=== PATIENT | female | born 1990 | race Caucasian/White ===

== ENCOUNTER 2018-01-28 12:35 | Inpatient (IN) | payer BC, OTHER ==
[2018-01-28] MEDS ORDERED: Lidocaine 1% w/Epinephrine 1:100K 20 ML VIAL ONE (12:43)
[2018-01-28] MEDS ORDERED: Fentanyl 100 MCG/2 ML VIAL ONE (12:53)
[2018-01-28] MEDS ORDERED: CEFAZOLIN/Water 2 GM/20 ML SYRINGE SLOW IVP SCH (13:00)
[2018-01-28] MEDS ORDERED: Ondansetron HCl/PF 4 MG/2 ML Vial ONE (13:07)
[2018-01-28] MEDS ORDERED: PHENYLEPHRINE-NS 100 MCG/ML 10 ML SYRINGE ONE (13:07)
[2018-01-28] MEDS ORDERED: Succinylcholine Chloride 20 MG/ML 10 ml SYRINGE FS ONE (13:07)
[2018-01-28] MEDS ORDERED: Lidocaine 1% PF 5 ML VIAL ONE (13:07)
[2018-01-28] MEDS ORDERED: Metoclopramide HCl 10 MG/2 ML VIAL ONE ×2 (13:07→13:26)
[2018-01-28] MEDS ORDERED: Dexamethasone 20 MG/5 ML VIAL ONE (13:07)
[2018-01-28] MEDS ORDERED: PROPOFOL 200 MG/20 ML VIAL ONE (13:07)
[2018-01-28 13:12] LABS: #Basophils 0.1 thou/uL (0.0-0.2); #Eosinphils 0.1 thou/uL (0.0-0.7); #Lymphocytes 1.5 thou/uL (1.20-3.40); #Monocytes 0.5 thou/uL (0.11-0.59); #Neutrophils 7.4 thou/uL (1.40-6.50); %Basophils 0.6 % (0.0-1.0); %Eosinophils 0.7 % (0.0-10.0); %Lymphocytes 15.7 % (21.0-51.0); %Monocytes 4.9 % (0.0-10.0); %Neutrophils 78.1 % (42.0-75.0); Hemoglobin 13.3 g/dL (12.0-16.0); Mean Corpuscular HGB CONC 35.1 g/dL (32.0-36.0); Mean Corpuscular Volume 91.2 fL (78.0-98.0); Platelet Count 277 thou/uL (130-400); RBC Distribution Width 11.4 % (11.5-14.5); Red Blood Cell (RBC) Count 4.15 mill/uL (4.20-5.40); White Blood Cell (WBC) Count 9.5 thou/uL (4.8-10.8)
[2018-01-28 13:16] LABS: BHCG - Serum Negative (NEGATIVE); Pregs Control Background? CLEAR/WHITE (CLR/WHITE); Pregs Control Bar Appear? YES (CONTROL BAR)
[2018-01-28 13:22] LABS: Anion Gap 14 mmol/L (10-20); BUN (Urea Nitrogen) 9 mg/dL (7.0-18.7); Calc. Creatinine Clearance 0 mL/min (70-130); Calcium 9.2 mg/dL (7.8-10.44); Carbon Dioxide 20 mmol/L (22-29); Chloride 105 mmol/L (98-107); Estimated GFR-MDRD Greater than 90; Glucose 113 mg/dL (70-105); Potassium 4.1 mmol/L (3.5-5.1); Sodium 135 mmol/L (136-145)
[2018-01-28] MEDS ORDERED: diphenhydrAMINE 50 MG/ML VIAL ONE (13:26)
[2018-01-28] MEDS ORDERED: Fentanyl 250 MCG/5 ML VIAL ONE (14:25)
[2018-01-28] MEDS ORDERED: Heparin 10,000 UNITS/1 ML VIAL ONE ×2 (14:46→21:53)
[2018-01-28] MEDS ORDERED: Lidocaine 2% 10 ML INJ ONE (14:46)
[2018-01-28] MEDS ORDERED: Hetastarch 6% 500 ML 500 ML ONE (14:46)
[2018-01-28] MEDS ORDERED: traMADol HCl 50 MG TAB PO PRN (14:47)
[2018-01-28] MEDS ORDERED: Dextrose 5% in Water 1,000 ML IV PRN (14:49)
[2018-01-28] MEDS ORDERED: Ondansetron ODT 4 MG TAB PO PRN (14:49)
[2018-01-28] MEDS ORDERED: Dextrose 50% Abboject 50 ML SYRINGE SLOW IVP PRN (14:49)
[2018-01-28] MEDS ORDERED: Ondansetron HCl/PF 4 MG/2 ML Vial IVP PRN (14:49)
--- NOTE | 2018-01-28 14:53 | RAD ---
PORTABLE CHEST: Date: 01/28/18 PROVIDED CLINICAL HISTORY: Partial left thumb amputation. FINDINGS: Cardiac and mediastinal silhouette is within normal limits. Lungs appear clear. No pleural fluid or p neumothorax apparent. IMPRESSION: No evidence for an acute cardiopulmonary process. POS: PEDRO
--- NOTE | 2018-01-28 15:07 | RAD ---
LEFT HAND 3 VIEWS: Date: 01/28/18 PROVIDED CLINICAL HISTORY: Left hand pain status post injury. FINDINGS: Markedly comminuted displaced fractures of the thumb proximal phalanx and proximal second and third m etacarpals demonstrated. Associated soft tissue irregularity. No additional fracture is evident. Alig nment appears otherwise anatomic. IMPRESSION: Comminuted displaced fractures of the first through third rays as above. POS: PEDRO
[2018-01-28] MEDS ORDERED: HYDROmorphone 0.5 MG/0.5 ML SYRINGE ONE ×5 (15:45→21:21)
[2018-01-28 17:16] LABS: Hemoglobin 10.7 g/dL (12.0-16.0)
[2018-01-28] MEDS ORDERED: Sodium Chloride 0.9% 30 ML ONE (17:19)
[2018-01-28] MEDS ORDERED: Albumin 5% 500 ML ONE (18:29)
[2018-01-28 19:14] LABS: Hemoglobin 9.4 g/dL (12.0-16.0)
[2018-01-28] MEDS ORDERED: Bacitracin Zinc Ointment 30 gm TUBE ONE (19:33)
[2018-01-28] MEDS ORDERED: CEFAZOLIN 1 GM VIAL ONE (20:48)
[2018-01-28] MEDS ORDERED: Sodium Chloride 0.9% 10 ML ONE (22:31)
[2018-01-28] MEDS ORDERED: Bupivacaine PF 0.5% 30 ML VIAL ONE (23:28)
[2018-01-29] MEDS: Sodium Chloride 0.9% 1,000 ML IV SCH ×3 (00:19→09:17)
[2018-01-29] MEDS ORDERED: HYDROcodone/Acetaminophen 5/325 mg Tablet PO PRN (00:20)
[2018-01-29] MEDS ORDERED: Ondansetron HCl/PF 4 MG/2 ML Vial IV PRN (00:20)
[2018-01-29] MEDS ORDERED: TETANUS AND DIPHTHERIA TOX/PF 0.5 ML DISP.SYRIN IM SCH (00:30)
[2018-01-29] MEDS ORDERED: Communication Order-Pharmacy FS SCH (00:30)
[2018-01-29 00:41] VITALS: BMI 25.4
[2018-01-29] MEDS: Acetaminophen 500 MG TAB PO SCH ×5 (00:57→19:56)
[2018-01-29] MEDS: traMADol HCl 50 MG TAB PO SCH ×5 (00:58→19:57)
[2018-01-29] MEDS: Gentamicin Sulfate 80 MG in Premix Bag 1 BAG IVPB SCH ×2 (00:59→17:20)
[2018-01-29] MEDS: Ketorolac Tromethamine 30 MG/ML VIAL IVP SCH ×5 (01:00→17:28)
[2018-01-29] MEDS: CEFAZOLIN 1 GM in Sodium Chloride 0.9% 100 ML IVPB SCH ×5 (01:00→22:08)
[2018-01-29] MEDS: Famotidine 20 MG TAB PO SCH ×3 (01:00→19:58)
[2018-01-29] MEDS: Vancomycin HCl 1 GM in Premix Bag 1 BAG IVPB SCH ×3 (01:10→17:27)
[2018-01-29] MEDS ORDERED: Hetastarch 6% 500 ML 500 ML IVPB SCH (01:15)
[2018-01-29 04:00] LABS: #Lymphocytes 1.2 thou/uL (1.20-3.40); #Monocytes 0.4 thou/uL (0.11-0.59); #Neutrophils 7.2 thou/uL (1.40-6.50); %Lymphocytes 13.6 % (21.0-51.0); %Monocytes 4.5 % (0.0-10.0); %Neutrophils 81.8 % (42.0-75.0); Hemoglobin 9.6 g/dL (12.0-16.0); Mean Corpuscular HGB CONC 34.2 g/dL (32.0-36.0); Mean Corpuscular Hemoglobin 31.3 pg (27.0-31.0); Mean Corpuscular Volume 91.3 fL (78.0-98.0); Mean Platelet Volume 6.1 fL (7.4-10.4); Platelet Count 217 thou/uL (130-400); RBC Distribution Width 11.4 % (11.5-14.5); Red Blood Cell (RBC) Count 3.06 mill/uL (4.20-5.40); White Blood Cell (WBC) Count 8.8 thou/uL (4.8-10.8)
[2018-01-29] MEDS: Aspirin 81 mg Enteric Coated Tablet PO SCH ×2 (08:16→19:56)
[2018-01-29] MEDS ORDERED: Vancomycin HCl 1 GM in Premix Bag 1 BAG IVPB SCH (09:00)
--- NOTE | 2018-01-29 09:02 | HP ---
DATE OF ADMISSION: 01/28/2018 ATTENDING PHYSICIAN: Dr. Gomez. TRAUMA ACTIVATION: Level 2. HISTORY OF PRESENT ILLNESS: This is a 27-year-old female who presented to [facility] via [facility] after sustaining an injury to her left hand. Per patient, they were using a skill saw when her hand slipped and got hit by the blade with a saw. She had immediate onset of left hand pain and deformity . Patient was evaluated in the emergency room and found to have an open left hand fracture with a ne urosensory deficit. She was seen and evaluated by Dr. Burroughs who plans on taking her to the OR at this time. Upon my evaluation, the patient has a chief complaint of left hand pain which has been im proved with medications and worsened with movement. She denies falling or any other traumatic injury . PAST MEDICAL HISTORY: ALLERGIES: None. CHRONIC MEDICAL ILLNESSES: Hypothyroidism. HOME MEDICATIONS: Synthroid 100 mcg, liothyronine 25 mcg, control. PAST SURGICAL HISTORY: Tonsillectomy. 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 She endorses occasional alcohol use. Marcos es tobacco or illicit drug use. FAMILY HISTORY: Noncontributory. REVIEW OF SYSTEMS: A 10-point review of systems was performed and essentially negative with the exce ption of upper respiratory infection and as indicated in the HPI. PHYSICAL EXAMINATION: VITAL SIGNS: Blood pressure 128/77, pulse 73, respirations 14, O2 sat 99% on room air, temperature 9 9.0. GENERAL: Well-developed female in no acute distress, resting in bed. HEAD: Atraumatic, normocephalic. EYES: Pupils were PERRL. Extraocular movements are intact. NECK: Supple. Trachea is midline. CHEST: Atraumatic. No tenderness to palpation. Normal work of breathing, symmetric rise. LUNGS: Clear to auscultation bilaterally. CARDIOVASCULAR: Regular rate and rhythm, no obvious murmurs, rubs or gallops. GASTROINTESTINAL: Soft, nontender, nondistended. Bowel sounds are positive. MUSCULOSKELETAL: Bilateral lower extremities within normal limits. Right upper extremity within nor mal limits. Left upper extremity with some bruising of the proximal arm attributed to prolonged infl ation of blood pressure cuff. Left hand dressing with some sanguinous staining. Fingers demonstrate good capillary refill. Second through fourth fingers with good capillary refill, but first through fourth fingers with decreased extension, thumb with impaired capillary refill. Fifth digit appears t o be within normal limits. NEUROLOGIC: GCS of 15 and no focal deficit is noted. LABORATORY DATA: WBC 9.5, hemoglobin 13.3, hematocrit 37.9, platelet count 277. Sodium 135, potassi um 4.1, chloride 105, carbon dioxide 20, BUN 9, creatinine 0.71, glucose 113. Serum test i s negative. RADIOLOGIC FINDINGS: Chest x-ray without acute cardiopulmonary process. Hand x-ray with soft tissue swelling and obvious fracture of the middle phalanx of the first finger and the second and third met acarpal. Official read is still pending. ASSESSMENT: 1. Status post skill saw trauma to left upper extremity. 2. Open fracture, left hand. 3. Acute traumatic pain. 4. History of hypothyroidism. PLAN: Admit to Trauma Services. Dr. Burroughs from Hand and Orthopedic Surgery has seen and evaluate d the patient. She is currently on day stay pending operative intervention to her injury. Periopera tive pain management with p.o. analgesics. Postoperatively, the patient will need at least a 24-hour course of IV antibiotics. Further postoperative care to be determined after discussion with Dr. Lanny canseco and dependent upon vascular status postoperatively. Plans for admission were discussed with th e patient at bedside. All questions were answered at the time of this dictation. Trauma attending h as been notified of admission.
--- NOTE | 2018-01-29 11:47 | RAD ---
LEFT HAND 3 VIEWS: Date: 01/28/18 PROVIDED CLINICAL HISTORY: Postop. FINDINGS: Multiple spot fluoroscopic images of the left hand submitted. COMPARISON: 01/28/18. FINDINGS: Interval postoperative changes of open reduction and internal fixation involving previously described fractures of first through third rays. Pinning changes are noted involving the base of the fourth me tacarpal, which presumably reflects fracture fixation. IMPRESSION: As above. POS: PEDRO
--- NOTE | 2018-01-29 12:30 | PRG ---
DATE OF SERVICE: 01/29/2018 SUBJECTIVE: This is a 27-year-old female who was a level 2 trauma activation after sustaining a trau ma to her left hand secondary to a skill saw accident. She is postop day #1 status post repair of th ose injuries with Dr. Burroughs. Upon my evaluation, the patient states that her pain has been well c ontrolled and she vocalized no complaint. There were no acute overnight events. OBJECTIVE: VITAL SIGNS: T-max 99.1, pulse 80, respirations 16, O2 sat 98% on room air, blood pressure 111/71. GENERAL: Well-developed young female in no acute distress, resting in bed. PULMONARY: Normal work of breathing. Symmetric rise. CARDIOVASCULAR: Regular rate and rhythm. GASTROINTESTINAL: Abdomen is soft, nontender, nondistended. MUSCULOSKELETAL: Moves all extremities x4. Left upper extremity dressing is clean, dry, and intact. Sensation intact in all 5 fingers. She has good capillary refill. LABORATORY DATA: WBC 8.8, hemoglobin 9.6, hematocrit 27.9, platelet count 217. ASSESSMENT: 1. Status post skill saw accident. 2. Open proximal phalanx and second and third metacarpal fractures, postop day #1. 3. Acute traumatic pain. PLAN: Continue antibiotics per discussion with Dr. Burroughs from Hand Surgery. Continue frequent va scular checks and dextran. Discontinue Loco and maintenance IV fluids. Incentive spirometry, pulmo nary toileting and mobility. The patient was discussed with trauma attending.
--- NOTE | 2018-01-29 21:53 | HP ---
CHIEF COMPLAINT: Deep laceration of left hand. HISTORY OF PRESENT ILLNESS: This is a 27-year-old female who sustained a deep transverse laceration of the left hand due to a skill saw. Yesterday, she was in the operating room for over 12 hours for reconstruction and had the hand reattached. She does report her pain is controlled. She does have s ome sensation in her fingers. PAST MEDICAL HISTORY: Significant for hypothyroidism. PAST SURGERIES: Tonsil and adenoidectomy. MEDICATIONS: Levothyroxine. ALLERGIES: No known drug allergies. SOCIAL HISTORY: She is . She is a homemaker. No tobacco or alcohol. FAMILY HISTORY: Heart disease in her father. PHYSICAL EXAMINATION: VITAL SIGNS: Temperature 99, pulse 89, blood pressure 123/70. GENERAL: Well-developed, well-nourished female, awake, alert, in no apparent distress. HEENT: No injury. Pupils equal, round, and reactive. Extraocular motor intact. Pharynx clear. Go od dentition. NECK: Supple, no thyroid masses, no carotid bruits, no tenderness. LUNGS: Clear. HEART: Regular rate and rhythm. ABDOMEN: Soft, nondistended, nontender. EXTREMITIES: Her left hand is bandaged. It is her nondominant hand. The fingers are exposed. They have good vascularity and warmth, capillary refill and they do have sensation. ASSESSMENT: Status post reconstruction of left hand. PLAN: Per Dr. Burroughs.
[2018-01-30] MEDS: Ketorolac Tromethamine 30 MG/ML VIAL IVP SCH ×4 (00:46→17:37)
[2018-01-30] MEDS: traMADol HCl 50 MG TAB PO SCH ×4 (02:41→20:49)
[2018-01-30] MEDS: Vancomycin HCl 1 GM in Premix Bag 1 BAG IVPB SCH ×3 (02:41→18:05)
[2018-01-30] MEDS: Acetaminophen 500 MG TAB PO SCH ×4 (02:41→20:50)
[2018-01-30] MEDS: CEFAZOLIN 1 GM in Sodium Chloride 0.9% 100 ML IVPB SCH ×3 (06:19→20:57)
[2018-01-30] MEDS: Aspirin 81 mg Enteric Coated Tablet PO SCH ×2 (09:36→20:50)
[2018-01-30] MEDS: Famotidine 20 MG TAB PO SCH ×2 (09:36→20:49)
[2018-01-30] MEDS: Gentamicin Sulfate 80 MG in Premix Bag 1 BAG IVPB SCH ×2 (09:36→17:37)
--- NOTE | 2018-01-30 11:08 | PRG ---
DATE OF SERVICE: 01/30/2018 SUBJECTIVE: This is a 27-year-old female who is a level 2 trauma activation after sustaining trauma to her left hand secondary to a skill saw accident. She is postop day #2 status post repair of those injuries by Dr. Burroughs. Upon her evaluation this morning, the patient states the pain has been we ll controlled and she vocalized no complaint. There were no acute overnight events. OBJECTIVE: VITAL SIGNS: Temperature 98.5, pulse 88, respirations 16, O2 sat 100% on room air, blood pressure 11 1/66. GENERAL: Young female in no acute distress, sitting in a chair, out of bed. PULMONARY: Normal work of breathing. Symmetric rise. CARDIOVASCULAR: Regular rate and rhythm. GASTROINTESTINAL: The abdomen is soft, nontender, nondistended. MUSCULOSKELETAL: Moves all extremities x4. Left upper extremity dressing is clean, dry and intact. She is able to move all her fingers and has good capillary refill. NEUROLOGIC: No focal deficit noted. ASSESSMENT: 1. Status post left upper extremity trauma secondary to skill saw accident. 2. Open proximal phalanx and second and third metacarpal fractures, postop day 2. 3. Acute traumatic pain. PLAN: Continue IV antibiotics at this time. We will discuss with Dr. Burroughs for definitive plan o f care. Continue Dextran per Dr. Burroughs's recommendations. Continue to encourage incentive spirom etry, pulmonary toileting and mobility. The patient's plan of care was discussed with the patient at bedside and all questions were answered at the time of this dictation. The patient was seen with trauma attending.
[2018-01-30] MEDS ORDERED: Hetastarch 6% 500 ML 500 ML IVPB SCH (15:45)
[2018-01-31] MEDS: Ketorolac Tromethamine 30 MG/ML VIAL IVP SCH ×2 (00:34→05:40)
[2018-01-31] MEDS: Gentamicin Sulfate 80 MG in Premix Bag 1 BAG IVPB SCH ×2 (00:35→08:47)
[2018-01-31 01:35] LABS: Vancomycin, Trough 12.4 ug/mL
[2018-01-31] MEDS: Vancomycin HCl 1 GM in Premix Bag 1 BAG IVPB SCH ×2 (03:04→09:48)
[2018-01-31] MEDS: Acetaminophen 500 MG TAB PO SCH ×3 (03:25→15:02)
[2018-01-31] MEDS: traMADol HCl 50 MG TAB PO SCH ×3 (03:25→15:02)
[2018-01-31] MEDS: CEFAZOLIN 1 GM in Sodium Chloride 0.9% 100 ML IVPB SCH ×2 (05:39→14:09)
[2018-01-31 06:37] LABS: #Eosinphils 0.2 thou/uL (0.0-0.7); #Lymphocytes 2.5 thou/uL (1.20-3.40); #Monocytes 0.3 thou/uL (0.11-0.59); #Neutrophils 3.1 thou/uL (1.40-6.50); %Basophils 0.6 % (0.0-1.0); %Eosinophils 2.5 % (0.0-10.0); %Lymphocytes 41.3 % (21.0-51.0); %Monocytes 4.5 % (0.0-10.0); %Neutrophils 51.2 % (42.0-75.0); Hemoglobin 8.8 g/dL (12.0-16.0); Mean Corpuscular HGB CONC 34.7 g/dL (32.0-36.0); Mean Corpuscular Hemoglobin 32.2 pg (27.0-31.0); Mean Corpuscular Volume 92.6 fL (78.0-98.0); Platelet Count 237 thou/uL (130-400); RBC Distribution Width 11.3 % (11.5-14.5); Red Blood Cell (RBC) Count 2.75 mill/uL (4.20-5.40)
[2018-01-31] MEDS ORDERED: Ferrous Sulfate 325 MG TAB PO SCH (08:00)
[2018-01-31] MEDS: Famotidine 20 MG TAB PO SCH (08:45)
[2018-01-31] MEDS: Aspirin 81 mg Enteric Coated Tablet PO SCH (08:46)
[2018-01-31] MEDS ORDERED: Ascorbic Acid 500 mg Chewable Tablet PO SCH (09:00)
[2018-01-31] MEDS ORDERED: Ibuprofen 600 MG TAB PO SCH (15:00)
[2018-01-31 15:53] VITALS: BP 125/80; TEMP 97.7
--- NOTE | 2018-02-01 14:01 | OP ---
DATE OF PROCEDURE: 01/28/2018 PREOPERATIVE DIAGNOSES: 1. Near complete amputation thumb with open fracture distal proximal phalanx, multiple tendon lacera tions. 2. Index finger open fracture with extensor tendon laceration. 3. Long finger grade 2 open fracture with extensor tendon laceration. 4. Ring finger open fracture, grade 2, proximal aspect of the metacarpal with tendon involvement. POSTOPERATIVE DIAGNOSES AND FINDINGS: 1. Near complete amputation thumb with open fracture distal proximal phalanx, multiple tendon lacera tions. 2. Index finger open fracture with extensor tendon laceration. 3. Long finger grade 2 open fracture with extensor tendon laceration. 4. Ring finger open fracture, grade 2, proximal aspect of the metacarpal with tendon involvement. 5. Extensor pollicis longus laceration just distal to the metacarpophalangeal joint with the extenso r pollicis brevis not involved. 6. Intrinsic lacerations in all digits to include dorsal interossei one through four. 7. Superficial radial nerve laceration index, second webspace and long finger. 8. Thumb ulnar neurovascular bundle artery and nerve laceration with intact artery neurovascular bun dle on the radial aspect. 9. Complete flexor pollicis longus laceration between the 2 pulleys. 10. Segmental bone loss, base of the metacarpal fracture, index finger greater than the long finger with necessary and best fit techniques and temporary fixation because of bone loss and need for later bone grafting at the index finger. 11. Extensor tendon lacerations in zone 6, extensor indicis proprius 2, extensor digitorum communis 3 to the index finger 4, long finger extensor digitorum communis 5, ring fingers extensor digitorum c ommunis with no evidence of palmar neurovascular structure injury or tendon injury in these central d igits. Total length of wound was 20 cm. Skin bridge found to be 8.5 mm on the radial palmar aspect of the thumb, left. PROCEDURES PERFORMED: 1. Thumb, left: A. Debridement of open fracture, grade 3 and material associated with open fracture. B. Repair of extensor pollicis longus tendon. C. Repair of intrinsic first dorsal interossei. D. Open reduction and internal fixation of proximal phalanx fracture. E. Flexor pollicis longus repair. F. Microscopic radial digital nerve repair. G. Microscopic repair of radial digital artery. 2. At the index finger: A. Debridement material associated with open fracture. B. Debridement of wound. C. Open reduction and internal fixation of comminuted index finger metacarpal fracture. D. First and second dorsal interossei repair. E. Extensor digitorum communis repair to the index finger. 3. At the middle finger: A. Debridement material associated with open fracture. B. Open reduction and internal fixation of middle finger metacarpal fracture. C. Third dorsal interossei repair. D. Extensor digitorum communis to the long finger/middle finger repair. 4. At the ring finger: A. Debridement material associated with open fracture. B. Open reduction and internal fixation of proximal aspect of the ring finger with K-wire. C. Dorsal interossei repair. D. Extensor digitorum communis repair. ADDITIONAL PROCEDURES: 1. Superficial radial nerve repair under microscope as was the ulnar digital nerve and artery under microscope. 2. Ligation of bleeder, dorsal artery circulation over the second metacarpal. 3. Debridement of wound, total 20 cm. 4. Closure of wound with a 2-layer closure, 20 cm, hand. 5. Application of intra-articular under microscope. 6. Application of short arm splint x2 for both the thumb and the digits. INDICATIONS: The patient was holding the saw for and the saw accidentally jumped, contact in a left nondominant hand leaving her with injuries listed above, which are all opened when the thumb had neurovascular compromise, so emergent procedure was indicated and executed at this hospital. DESCRIPTION OF PROCEDURE: After successful general endotracheal anesthesia, the limb was prepped and draped. We immediately went from [id number] and she had a field tourniquet applied. We prepped and draped the wound after obtaining a consent from the patient, initially with prepped an d draped wound, we did the initial debridement under, without tourniquet, to ensure we could tell wha t was viable and nonviable debridement material associated with open fracture to determine the level of contamination and we found it to be minimal, then we lifted up each fragment on the thumb, index, long, and the ring finger, which is only 50% cut and does not obliquely sagittal plane displaced, we using combination of a curette, tenotomy scissors as a rongeur, several retractors to perform the mira ridement in an excisional manner, removing of 1 to 1.5 mm circumference of the skin in all denuded mu scle. We then irrigated with 6 liters of normal saline and Pulsavac pressure. This included in the thumb. Next, we then performed provisional fixation of the thumb, K-wire was placed in the very dist al end of the oblique fracture in a lag screw technique and then lag screws were used x2, 1.5 Synthes set to complete this fracture care. We then had anatomic position and was stable, so we then did an extensor tendon repair with interrupted [id number] 4-0 Prolene which will be the same sutures u sed for all the other extensor tendons. The intrinsics were repaired with 2-0 Vicryl, then periosteu m was repaired on the palmar and dorsal aspect before tying the final sutures, and then we turned our attention to the next digit, realized then we have to do inspection of the neurovascular bundle and the flexor pollicis longus could be visualized through the wound to be cut, but the radial neurovascu lar bundle remained clinically intact. We now turned our attention to the index finger where the patient had a 6-part comminuted fracture he re, a 4-part comminuted fracture at the ring finger, and an incomplete approximately 40% cortical fra cture impression type, but still hanging at the ring finger. For the ring finger, we performed reduc tion and held that after debridement of material associated with open fracture using one 0.45 K-wire. We then placed one intramedullary wire after the debridement and best fit in the middle finger frac ture and then held this position, so we could place a plate, because there was no gross contamination as it is a grade 2 fracture in upper extremity. T-plate was used in excellent rotation at length. We lagged in one large buttress-type fragment on the radial side of the long finger, but then we turn ed our attention to the index finger. Here, we had to use the best fit method as well, but two 0.035 K-wire was placed and measured that from distal to proximal, held it out to length, because we could see there was marked comminution. This would be addressed later after I discussed with the patient and her family postop with bone graft once assuring no infection of 4-[address]. Now, we finished all debridement of the interossei, the skin is retracted 1.5 to 2 mm and then denude d skin excised with a Chevak blade in combination with a knife. We then irrigated with Pulsavac pres sure one last time, the reduction was maintained. We began with the index finger, indicis proprius a nd the extensor digitorum communis of the index finger repair, interrupted [id number] sutures wi th excellent latter day of some extension to the flexor digit. Then, we did the same procedure of t he extensor digitorum communis, we did extensor digitorum proprius of the index finger. We then trimmed the edges of the middle finger tendon, and used the same technique as used listed pre viously to correct deformity. Then, we identified the fracture on the ring finger being fixable, bec ause of the lack of contamination and the fact that there were three large fragments and two could be keyed into the base well. The patient then had the tourniquet deflated for first tourniquet time, now we returned our attention to tedious task of repairing all the tendons. After we had done the thumb extensor tendon, we then finished repairing all the interossei dorsally and the palmar portion of the wound and did not see an y neurovascular compromise. We then with an interrupted [id number] repair of all the extensor tendons, beginning in the ring finger, long finger/middle finger, and index finger after already finishing the ORIF of the proximal phalanx of the thumb with two lag screws . Now, we began the final deep debridement and remova l of some denuded muscle clot, and then we realized that the superficial radial nerve was completely lacerated in the 2 of the 3 terminal rami and we also dissected out by extending the incision slightl y distal and the thumb was standing in the same plane and did not violate the truly one intact vessel . We were able to see the flexor pollicis longus tendon, with a complete ulnar neurovascular bundle being lacerated, we found the distal end and held it with a small clamp. We then finished the #2 Ethibond closure and repaired in a [id number] individually for interosse i and we had excellent apposition. The extensor carpi radialis longus and brevis appeared to be inta ct during this procedure. We finished the irrigation, and then we finished the extensor tendon repai rs, extensor digitorum communis to the ring, long, index finger, extensor indicis proprius to t he index finger as well as the flexor pollicis longus repair which was then accomplished in the next step after closing the periosteum with interrupted 3-0 Monocryl, 3-0 undyed Vicryl. Flexor pollicis longus was visualized, then we lacerated between the pulleys, we pulled both the tendons into the wou nd and held them provisionally with a pull out wire, where the distal stump was approximately 1.5 cm long and the proximal stump was infinite. With the digit flexed, we brought both the wound, placed u sing the 6-0 Prolene, back wall method first through alignment, then we came with a loop suture as de scribed by Dr. Sutherland and Dr. Montoya. This gave excellent apposition, then we oversewed the 6-0 Prolene c ircumferentially on the palmar aspect of the tendon since it was cut from dorsal to palmar and slight ly obliquely. There was an excellent tension on the previous 20-degree hyperextended, to now make it 25 degrees flex of distal thumb interphalangeal joint. All the open reduction and internal fixation that we described above. C-arm was utilized. Then, the tourniquet had been inflated and deflated and then inflated again given almost a 90 minute break bet ween the two, because of fears of possible prehospitalization compression. The wound was then irrigated final time with 1 liter of normal saline and Pulsavac pressure with anti biotics inside. Then, we prepared to close the wound which we did over drains. We closed the 20-cm wound in multiple layers with a Monocryl deep and an Ethibond superficial . We then went ahead, the K-wires placed for provisional fixation, cut, and brought out through separate stab wounds follo wing the incisions with a wire bent 90 degrees. The flexion attitude of 30 degrees maintained on the flexor pollicis longus effect on the phalangeal joint throughout the procedure and the digit was pin k once we completed the microscopic repair using 9-0 nylon for the artery and 9-0 for the digital ner ve at the level just prior or proximal to the bifurcation. The pulleys now will be repaired as the l aceration was through the tendon sheath. This was at the flexor pollicis longus with an excellent ap position using the technique as described above. We then deflated tourniquet for the last time as having a 2-1/2 hour interval between the first and s econd phase of the tourniquet use and was able to obtain excellent skin closure over drain, palmar ba sed splint with the MP joints at -30 degrees full extension instead of the 90, which was attached to the repair. Patient left the operating room without evidence of anesthetic or operative complication .
== END 2018-01-31 18:45 | disposition home or self-care (01) | DRG 906 ==
LOC: ERS 12:35 → CCU 01-29 00:32 → SJJU 01-29 15:41
PROVIDERS: ADMIT Orthopaedic Surgery Hand Surgery; ATTEND Orthopaedic Surgery Hand Surgery
PROC: 0PSS04Z Reposition Left Thumb Phalanx with Internal Fixation Device, Open Approach (ICD-10-PCS; principal; 2018-01-29)
PROC: 01Q60ZZ Repair Radial Nerve, Open Approach (ICD-10-PCS; 2018-01-29)
PROC: 03QC0ZZ Repair Left Radial Artery, Open Approach (ICD-10-PCS; 2018-01-29)
PROC: 0PSQ04Z Reposition Left Metacarpal with Internal Fixation Device, Open Approach (ICD-10-PCS; 2018-01-29)
PROC: 0PSQ04Z Reposition Left Metacarpal with Internal Fixation Device, Open Approach (ICD-10-PCS; 2018-01-29)
PROC: 0PSV04Z Reposition Left Finger Phalanx with Internal Fixation Device, Open Approach (ICD-10-PCS; 2018-01-29)
DX: S68.522A Partial traumatic transphalangeal amputation of left thumb, initial encounter (principal); S62.391B Other fracture of second metacarpal bone, left hand, initial encounter for open fracture; S62.393B Other fracture of third metacarpal bone, left hand, initial encounter for open fracture; S62.615B Displaced fracture of proximal phalanx of left ring finger, initial encounter for open fracture; S64.22XA Injury of radial nerve at wrist and hand level of left arm, initial encounter; E03.9 Hypothyroidism, unspecified; W31.2XXA Contact with powered woodworking and forming machines, initial encounter; Y93.H3 Activity, building and construction
CPT/HCPCS: 36415; 36430; 71045; 76001; 80048; 80202; 84703; 85025; 86850; 86900; 86901; 96361; 96374; 96375; A4216; C1713; G0390; J0131; J0690; J1100; J1170; J1200; J1580; J1644; J1885; J2001; J2270; J2405; J2704; J2765; J3010; J3370; J3490; J7050; P9016; P9045; S0020

== ENCOUNTER 2018-03-03 06:49 | Observation (INO) | payer OTHER ==
[2018-03-02 12:07] VITALS: BMI 23.6
[2018-03-03] MEDS ORDERED: Midazolam HCl 2 mg/2 ml Vial ONE (08:24)
[2018-03-03] MEDS ORDERED: Ropivacaine 0.2% HCl/PF 20 ML ONE (08:24)
[2018-03-03] MEDS ORDERED: Fentanyl 100 MCG/2 ML VIAL ONE (08:24)
[2018-03-03] MEDS ORDERED: Bupivacaine PF 0.5% 30 ML VIAL ONE (08:31)
[2018-03-03] MEDS ORDERED: Sodium Chloride 0.9% 10 ML ONE (08:31)
[2018-03-03] MEDS ORDERED: Bacitracin Zinc Ointment 30 gm TUBE ONE (08:31)
[2018-03-03] MEDS ORDERED: Zolpidem Tartrate 5 MG TAB PO PRN (08:45)
[2018-03-03] MEDS ORDERED: Ondansetron HCl/PF 4 MG/2 ML Vial IVP PRN (08:45)
[2018-03-03] MEDS ORDERED: Ropivacaine HCl/PF 1,100 MG in Sodium Chloride 0.9% 440 ML NERVE BLCK SCH (08:45)
[2018-03-03] MEDS ORDERED: traMADol HCl 50 MG TAB PO PRN ×2 (08:45)
[2018-03-03] MEDS ORDERED: HYDROcodone/Acetaminophen 10/325 mg Tablet PO PRN (08:45)
[2018-03-03] MEDS ORDERED: Promethazine HCl 25 MG/ML VIAL IM PRN (08:45)
[2018-03-03] MEDS ORDERED: Ketorolac Tromethamine 30 MG/ML VIAL IVP PRN (08:45)
[2018-03-03] MEDS ORDERED: Fentanyl 100 MCG/2 ML VIAL IV PRN (08:46)
[2018-03-03] MEDS ORDERED: Fentanyl 250 MCG/5 ML VIAL ONE (08:47)
[2018-03-03 09:11] LABS: #Lymphocytes 1.6 thou/uL (1.20-3.40); #Monocytes 0.3 thou/uL (0.11-0.59); #Neutrophils 2.9 thou/uL (1.40-6.50); %Basophils 0.4 % (0.0-1.0); %Eosinophils 0.8 % (0.0-10.0); %Lymphocytes 32.7 % (21.0-51.0); %Neutrophils 59.2 % (42.0-75.0); Mean Platelet Volume 6.5 fL (7.4-10.4); Platelet Count 218 thou/uL (130-400); RBC Distribution Width 11.6 % (11.5-14.5); Red Blood Cell (RBC) Count 3.66 mill/uL (4.20-5.40); White Blood Cell (WBC) Count 4.9 thou/uL (4.8-10.8)
[2018-03-03] MEDS ORDERED: Thrombin 5000 UNITS/5 ML VIAL ONE (11:02)
[2018-03-03] MEDS ORDERED: Ropivacaine 0.5% HCl/PF (150 MG/30 ML VIAL) ONE (13:12)
[2018-03-03] MEDS ORDERED: PROPOFOL 200 MG/20 ML VIAL ONE (15:07)
[2018-03-03] MEDS ORDERED: Ondansetron HCl/PF 4 MG/2 ML Vial ONE (15:07)
[2018-03-03] MEDS ORDERED: Glycopyrrolate 0.2 MG/ML 5 ML SYRINGE ONE (15:07)
[2018-03-03] MEDS ORDERED: Metoclopramide HCl 10 MG/2 ML VIAL ONE (15:07)
[2018-03-03] MEDS ORDERED: Dexamethasone 20 MG/5 ML VIAL ONE (15:07)
[2018-03-03] MEDS ORDERED: ePHEDrine/0.9% NaCl/PF SYRINGE 50 mg/10 ml ONE (15:07)
[2018-03-03] MEDS ORDERED: Ondansetron HCl/PF 4 MG/2 ML Vial IV PRN (15:28)
[2018-03-03] MEDS ORDERED: Milk Of Magnesia 30 ML UDCUP PO PRN (15:28)
[2018-03-03] MEDS ORDERED: Bisacodyl 10 MG SUPP PR PRN (15:28)
[2018-03-03] MEDS ORDERED: Communication Order-Pharmacy FS SCH ×2 (15:30→15:45)
[2018-03-03] MEDS ORDERED: TETANUS AND DIPHTHERIA TOX/PF 0.5 ML DISP.SYRIN IM SCH (15:30)
--- NOTE | 2018-03-03 16:06 | RAD ---
RADIOGRAPH LEFT DIGITS THREE VIEWS: 03/03/18 at 11:15 a.m. HISTORY: 27-year-old female status post acute traumatic injury to the left hand. COMPARISON: 01/28/18. FINDINGS: Small field of view fluoroscopic spot images obtained with C-arm in the OR. There has been interval r eduction of the severely comminuted and displaced fractures of the proximal metadiaphyses of the seco nd and third metacarpals, fixated with plate and screws. There is an additional pin that overlies the proximal metadiaphysis of the fourth metacarpal. There are scattered skin vincent. Alignment has sig nificantly improved. IMPRESSION: Ongoing open reduction internal fixation of the comminuted and displaced, acute, traumatic fractures of the second and third metacarpals. POS: PEDRO
[2018-03-03] MEDS: HYDROcodone/Acetaminophen 10/325 mg Tablet PO PRN (16:31)
[2018-03-03] MEDS: Ketorolac Tromethamine 30 MG/ML VIAL IVP SCH ×2 (18:10→23:28)
[2018-03-03] MEDS: Vancomycin HCl 1 GM in Premix Bag 1 BAG IVPB SCH (20:05)
[2018-03-03] MEDS: Aspirin 81 mg Enteric Coated Tablet PO SCH (20:05)
[2018-03-03] MEDS ORDERED: Aspirin 81 mg Enteric Coated Tablet PO SCH (21:00)
[2018-03-04] MEDS: Ketorolac Tromethamine 30 MG/ML VIAL IVP SCH (05:47)
[2018-03-04] MEDS: HYDROcodone/Acetaminophen 10/325 mg Tablet PO PRN (09:10)
[2018-03-04] MEDS: Aspirin 81 mg Enteric Coated Tablet PO SCH (09:10)
[2018-03-04] MEDS: Vancomycin HCl 1 GM in Premix Bag 1 BAG IVPB SCH (09:11)
[2018-03-04 11:52] VITALS: BP 105/67; TEMP 98.6
== END 2018-03-04 12:18 | disposition home or self-care (01) ==
LOC: SDC 06:49 → SURG A 15:34
PROVIDERS: ADMIT Orthopaedic Surgery Hand Surgery; ATTEND Orthopaedic Surgery Hand Surgery
PROC: 0XU Anatomical Regions, Upper Extremities, Supplement (ICD-10-PCS; principal; 2018-03-04)
PROC: 0XU Anatomical Regions, Upper Extremities, Supplement (ICD-10-PCS; 2018-03-04)
DX: S62.301A Unspecified fracture of second metacarpal bone, left hand, initial encounter for closed fracture (principal); S62.303A Unspecified fracture of third metacarpal bone, left hand, initial encounter for closed fracture; E03.9 Hypothyroidism, unspecified; Z79.899 Other long term (current) drug therapy; Z98.890 Other specified postprocedural states
CPT/HCPCS: 76001; 85025; 96365; 96375; 96376; A4216; C1713; G0378; J1100; J1885; J2250; J2405; J2704; J2765; J2795; J3010; J3370; J3490; J7050; S0020

== ENCOUNTER 2018-09-12 09:48 | Day surgery (SDC) | payer OTHER ==
[2018-09-11 14:57] VITALS: BMI 22.8
[2018-09-12 10:19] LABS: #Basophils 0.1 thou/uL (0.0-0.2); #Eosinphils 0.1 thou/uL (0.0-0.7); #Lymphocytes 2.1 thou/uL (1.20-3.40); #Monocytes 0.4 thou/uL (0.11-0.59); #Neutrophils 3.1 thou/uL (1.40-6.50); %Basophils 0.9 % (0.0-1.0); %Eosinophils 1.4 % (0.0-10.0); %Lymphocytes 36.2 % (21.0-51.0); %Monocytes 6.2 % (0.0-10.0); %Neutrophils 55.3 % (42.0-75.0); Hemoglobin 14.3 g/dL (12.0-16.0); Mean Corpuscular Hemoglobin 30.4 pg (27.0-31.0); Mean Corpuscular Volume 92.2 fL (78.0-98.0); Mean Platelet Volume 6.4 fL (7.4-10.4); Platelet Count 286 thou/uL (130-400); RBC Distribution Width 11.6 % (11.5-14.5); Red Blood Cell (RBC) Count 4.69 mill/uL (4.20-5.40); White Blood Cell (WBC) Count 5.7 thou/uL (4.8-10.8)
[2018-09-12] MEDS ORDERED: Famotidine/PF 20 mg/2ml Vial ONE (11:06)
[2018-09-12] MEDS ORDERED: Tranexamic Acid 1,000 MG/10 ML VIAL ONE (11:06)
[2018-09-12] MEDS ORDERED: Fentanyl 100 MCG/2 ML VIAL ONE (11:11)
[2018-09-12] MEDS ORDERED: Bacitracin Zinc Ointment 30 gm TUBE ONE (11:12)
[2018-09-12] MEDS ORDERED: Bupivacaine PF 0.5% 30 ML VIAL ONE (11:12)
[2018-09-12] MEDS ORDERED: Sodium Chloride 0.9% 10 ML ONE (11:12)
[2018-09-12] MEDS ORDERED: Thrombin 5000 UNITS/5 ML VIAL ONE (13:08)
[2018-09-12] MEDS ORDERED: Betamet Acet/Betamet Na Ph 30 MG/5 ML VIAL ONE (13:58)
[2018-09-12] MEDS ORDERED: Ketorolac Tromethamine 30 MG/ML VIAL ONE ×2 (14:49→15:38)
[2018-09-12] MEDS ORDERED: Ondansetron PF 4 MG/2 ML Vial ONE (15:38)
[2018-09-12] MEDS ORDERED: PROPOFOL 200 MG/20 ML VIAL ONE (15:38)
[2018-09-12] MEDS ORDERED: Dexamethasone 20 MG/5 ML VIAL ONE (15:38)
[2018-09-12] MEDS ORDERED: Lidocaine 1% PF 5 ML VIAL ONE (15:38)
--- NOTE | 2018-09-13 10:52 | OP ---
DATE OF PROCEDURE: 09/12/2018 PREOPERATIVE DIAGNOSIS: Left index finger, middle finger, ring finger, small finger, middle metacarpophalangeal joint contracture and intrinsic plus extrinsic contractures involving the extensor tendon and the proximal intrinsics. FINDINGS: Dense, thick scar involving the index finger, long finger/middle finger, small finger, ring finger, extensor tendons extrinsically, intrinsic tightness, joint contractures with all joint significantly enough for release except for the small finger and extrinsic tightness. Final findings of intrinsic, extrinsic, and joint contractures. PROCEDURES PERFORMED: 1. Multiple scar adhesion release, wrist level just distal to the retinaculum edge. 2. Superficial ulnar nerve neuroplasty. 3. Wrist, extensor digitorum communis tenolysis. 4. Left index finger with following procedures: a. Extensor digitorum communis index finger tenolysis. b. Extensor digitorum communis to the index finger tenotomy. c. Metacarpophalangeal joint capsulectomy, dorsal, left index finger. d. Intrinsic release, left index finger. 5. Left middle finger: a. Extensor digitorum communis left middle finger tenolysis. b. Extensor digitorum communis to left middle finger tenotomy. c. Metacarpophalangeal joint capsulectomy, dorsal, left middle finger. d. Intrinsic release, left middle finger. 6. Left ring finger; a. Extensor digitorum communis to the ring finger tenolysis. b. Extensor digitorum communis tenotomy to the ring finger. c. Metacarpophalangeal joint dorsal capsulectomy. d. Intrinsic release, radial and ulna. 1. Left small finger; a. Extensor digitorum communis left small finger tenolysis. b. Extensor digitorum communis to left small finger tenotomy. c. Metacarpophalangeal joint capsulectomy, dorsal, left small finger. d. Intrinsic release, left small finger. e. No formal arthrotomy was required. 2. Application of a dynamic splint allowing motion. DESCRIPTION OF PROCEDURE: After successful general endotracheal anesthesia, the limb was prepped and draped. The patient then had opted to go to sleep and did not want to stay awake for local because we would probably involve all 4 digits. We then outlined old surgical incision, carried through skin and subcutaneous tissue, and we were very careful to visualize tenderness even if it was dense scar as appropriate. We then put the limb to exsanguinate, tourniquet was inflated to 250 mmHg, was able to test and found that the patient even had extrinsic tightness at sleep. The joint of the index finger and the middle finger, metacarpophalangeal joint passively could not get beyond -40 of flexion, the ring finger could not get beyond -70, but MP joint passed it, but the small finger could easily get 100 degrees without much spring back. For this reason, we attacked the index finger first and we dissected from the index finger metacarpal head using old incision from previous surgery back to just proximal retinaculum. We saw minimal scar adhesions at the distal edge of retinaculum, but the proximal edge was clean, to include all compartments. The extensor pollicis longus was intact. The patient then had adhesions traced along with the extensor digitorum communis to the index finger, where previous graft had been done and we lifted this 360 degrees above the skin and the dorsally, the underlying contracture of the metacarpals as well as the distal wrist, and completely released this. Once we had done this, we performed a small tenotomy to remove excess scar still attach it to the tendon and began to separate it from the index finger. We realized that we have made only approximately 10-degree improvement and we still have some extrinsic tightness phenomena, so we completely lifted up the robledo, began radial, and did a capsulectomy along with joint release, metacarpophalangeal joint level dorsally, then we did a radial and ulnar intrinsic release approximately 2 cm distal to the joint with a triangular piece, base of which was 3 mm taken out and we noticed that we had full flexion passively of the MP joint and forward flexion of the PIP joint with the MP joint flexed or extended. Thus, we performed adequate extrinsic and intrinsic releases. There was no crepitus, there was no subluxation of the extensor mechanism and remained central despite the release listed above. We then repeated the mirror image procedures in the same order for the left middle finger, including the fact that we released the scar from the retinaculum edge distally all the way to the joint wound. We did the same, periarticular and intrinsic releases as performed in the same order and we achieved the same results, where there was no spring back, easy passive 95-degree flexion of the PIP joint with the MP joint 95-degree flex, and the tenodesis effect was intact for flexion and extension of this digit. We then performed the exact mirror image procedure on the ring finger, small finger, but first, we had to perform a superficial ulnar nerve neuroplasty because it was encased in scar over the extensor digiti minimi, and once we had done this, then repeated the same mirror image procedure in the left ring finger in the same order at the tendon and joint has been done on the previous 2 digits, and the same was performed in the small finger except we had to do a separate stab wound, we had to separate the incision about 3 cm over the joint zigzag, and we did not perform arthrotomy at this left small finger. The wrist, extensor digitorum communis was reinspected, although small amount of tenolysis was completed. Distal retinaculum, superficial radial nerve remained intact. We then placed Celestone, 10 mL diffusely throughout all the tendon areas that had been maneuvered, removed a small amount of scar, elected not to remove the plates because we did not consider them because they were not a problem while removing and obtained hemostasis with diligence under magnification as well as using thrombin-soaked Gelfoam. The patient then had a bulky dressing applied with the digits at about 90 degrees of flexion at the MP joint, PIP joints, free to be flexed, in the recovery room, 15 minutes later, she could make a fist with 90 degrees of MP and simultaneous 95 degrees of PIP. No paradoxical experiences seen for motion. The digits were pink and there was no evidence of anesthetic operative complication with pain control, having given a 30 mL of 0.5% Marcaine divided equally amongst different parts of incisions just before the dressing and splints were applied. Job ID: [id number]
== END 2018-09-12 16:30 | disposition home or self-care (01) ==
LOC: SDC 09:48
PROVIDERS: ATTEND Orthopaedic Surgery Hand Surgery
PROC: 0RNV0ZZ Release Left Metacarpophalangeal Joint, Open Approach (ICD-10-PCS; principal; 2018-09-12)
PROC: 01N40ZZ Release Ulnar Nerve, Open Approach (ICD-10-PCS; principal; 2018-09-12)
PROC: 0KND0ZZ Release Left Hand Muscle, Open Approach (ICD-10-PCS; principal; 2018-09-12)
PROC: 0LN80ZZ Release Left Hand Tendon, Open Approach (ICD-10-PCS; principal; 2018-09-12)
DX: M62.442 Contracture of muscle, left hand (principal); E03.9 Hypothyroidism, unspecified; Z79.899 Other long term (current) drug therapy; Z98.890 Other specified postprocedural states
CPT/HCPCS: 85025; 88304; J0702; J1100; J1885; J2001; J2405; J2704; J3010; J3490; S0020; S0028

== ENCOUNTER 2019-08-21 09:40 | Inpatient (IN) | payer BC ==
[~2019-08-21 09:40] MED LIST: Bupivacaine PF 0.5% 30 ML VIAL ONE
[2019-08-21] MEDS ORDERED: hydrALAZINE 20 MG/ML VIAL SLOW IVP PRN ×2 (09:56→15:30)
[2019-08-21] MEDS ORDERED: Acetaminophen 500 MG TAB PO PRN (09:56)
[2019-08-21] MEDS ORDERED: Butorphanol Tartrate 1 MG/ML VIAL SLOW IVP PRN (09:56)
[2019-08-21] MEDS ORDERED: Promethazine HCl 25 MG/ML VIAL IM PRN ×2 (09:56→13:31)
[2019-08-21] MEDS ORDERED: NS / Oxytocin 40 units/1000ml 1,000 ML IV PRN (09:56)
[2019-08-21] MEDS ORDERED: Lidocaine 1% (PF) 30 ML VIAL SC PRN (09:56)
[2019-08-21] MEDS ORDERED: Diphenoxylate HCl/Atropine Tablet PO PRN ×2 (09:56)
[2019-08-21] MEDS ORDERED: Docusate 100 MG CAP PO PRN (09:56)
[2019-08-21] MEDS ORDERED: Ondansetron PF 4 MG/2 ML Vial IVP PRN ×3 (09:56→15:30)
[2019-08-21] MEDS ORDERED: HYDROcodone/Acetaminophen 5/325 mg Tablet PO PRN ×2 (09:56)
[2019-08-21] MEDS ORDERED: Misoprostol 200 MCG TAB PR PRN (09:56)
[2019-08-21] MEDS ORDERED: Ibuprofen 800 MG TAB PO PRN (09:56)
[2019-08-21] MEDS: Lactated Ringer's 1,000 ML IV SCH ×2 (10:01→12:45)
[2019-08-21 10:25] LABS: Hemoglobin 14.1 g/dL (12.0-16.0); Mean Corpuscular HGB CONC 32.5 g/dL (32.0-36.0); Mean Corpuscular Hemoglobin 29.9 pg (27.0-31.0); Mean Platelet Volume 7.1 fL (7.4-10.4); Platelet Count 220 thou/uL (130-400); RBC Distribution Width 12.4 % (11.5-14.5); Red Blood Cell (RBC) Count 4.71 mill/uL (4.20-5.40); White Blood Cell (WBC) Count 8.3 thou/uL (4.8-10.8)
[2019-08-21 10:53] VITALS: BMI 27.5
[2019-08-21 11:05] LABS: HBSAg Index 0.26 S/CO (0-0.99); Hep B Surf Ag Non-Reactive S/CO (NonReactive); Syphilis Antibody Nonreactive (Nonreactive); Syphilis Antibody Index 0.04 S/CO (<1.00 Non-Reactive)
[2019-08-21] MEDS ORDERED: NS w/ Oxytocin 10 units 500 ML ONE (12:27)
[2019-08-21] MEDS ORDERED: Fentanyl 4 mcg/Bup 0.1% Cadd 100 ML ONE (12:32)
[2019-08-21] MEDS ORDERED: NS w/ Oxytocin 10 units 500 ML IVPB SCH (13:00)
[2019-08-21] MEDS ORDERED: Acetaminophen 325 MG TAB PO PRN (13:31)
[2019-08-21] MEDS ORDERED: Naloxone HCl 0.4 mg/ml Vial IVP PRN ×2 (13:31)
[2019-08-21] MEDS ORDERED: diphenhydrAMINE 50 MG/ML VIAL IVP PRN (13:31)
[2019-08-21] MEDS ORDERED: ePHEDrine/0.9% NaCl/PF SYRINGE 50 mg/10 ml SLOW IVP PRN (13:31)
[2019-08-21] MEDS ORDERED: Lactated Ringer's 500 ML IV PRN (13:31)
[2019-08-21] MEDS ORDERED: Fentanyl 4 mcg/Bupivacaine 0.1% Cassette 100 ML EPIDURAL SCH (13:45)
[2019-08-21] MEDS ORDERED: Communication Order-Pharmacy FS SCH (13:45)
[2019-08-21] MEDS ORDERED: Misoprostol 200 MCG TAB VAG PRN (15:30)
[2019-08-21] MEDS ORDERED: Lanolin Ointment 7 GM TUBE TOP PRN (15:30)
[2019-08-21] MEDS ORDERED: Benzocaine-Menthol 82.5 ML CAN TOP PRN (15:30)
[2019-08-21] MEDS ORDERED: Milk Of Magnesia 30 ML UDCUP PO PRN (15:30)
[2019-08-21] MEDS ORDERED: Preparation H Ointment 28 GM TUBE PR PRN (15:30)
[2019-08-21] MEDS ORDERED: diphenhydrAMINE 25 MG CAP PO PRN (15:30)
[2019-08-21] MEDS ORDERED: Bisacodyl 10 MG SUPP PR PRN (15:30)
[2019-08-21] MEDS ORDERED: Acetaminophen/Codeine 30-300mg Tablet PO PRN ×2 (15:30)
[2019-08-21] MEDS ORDERED: Zolpidem Tartrate 5 MG TAB PO PRN (15:30)
[2019-08-21] MEDS ORDERED: NS / Oxytocin 40 units/1000ml 1,000 ML IV SCH (15:30)
[2019-08-21] MEDS: Ferrous Sulfate 325 MG TAB PO SCH (19:22)
[2019-08-21] MEDS: Docusate Calcium (SURFAK) 240 MG CAP PO SCH (20:37)
[2019-08-21] MEDS: Ibuprofen 800 MG TAB PO SCH (20:37)
[2019-08-22] MEDS: Ibuprofen 800 MG TAB PO SCH ×2 (04:48→13:53)
[2019-08-22 06:32] LABS: Mean Corpuscular HGB CONC 33.3 g/dL (32.0-36.0); Mean Corpuscular Volume 93.3 fL (78.0-98.0); Mean Platelet Volume 6.9 fL (7.4-10.4); Platelet Count 182 thou/uL (130-400); RBC Distribution Width 12.4 % (11.5-14.5); Red Blood Cell (RBC) Count 4.18 mill/uL (4.20-5.40); White Blood Cell (WBC) Count 9.4 thou/uL (4.8-10.8)
[2019-08-22] MEDS ORDERED: Adacel (T-DAP) 0.5 ML SYRINGE IM ONE (09:00)
[2019-08-22] MEDS ORDERED: Prenatal Vitamin 1 TAB PO SCH (09:00)
[2019-08-22] MEDS: Ferrous Sulfate 325 MG TAB PO SCH (09:25)
[2019-08-22] MEDS: Docusate Calcium (SURFAK) 240 MG CAP PO SCH (09:25)
[2019-08-22 11:51] VITALS: BP 118/74; TEMP 99.1
== END 2019-08-22 17:10 | disposition home or self-care (01) | DRG 807 ==
LOC: L&D 09:40 → 3SW 18:06
PROVIDERS: ADMIT Obstetrics & Gynecology; ATTEND Obstetrics & Gynecology
PROC: 10E0XZZ Delivery of Products of Conception, External Approach (ICD-10-PCS; principal; 2019-08-21)
PROC: 10907ZC Drainage of Amniotic Fluid, Therapeutic from Products of Conception, Via Natural or Artificial Opening (ICD-10-PCS; 2019-08-21)
DX: O99.284 Endocrine, nutritional and metabolic diseases complicating childbirth (principal); Z37.0 Single live birth; Z3A.38 38 weeks gestation of pregnancy; E03.9 Hypothyroidism, unspecified
CPT/HCPCS: 36415; 51702; 85027; 86780; 86850; 86900; 86901; 87340; J2590; S0020

== ENCOUNTER 2021-03-24 14:24 | Outpatient (CLI) | payer BC ==
[2021-03-24 16:22] LABS: #Eosinphils 0.1 10x3/uL (0.0-0.5); #Monocytes 0.3 10x3/uL (0.0-1.1); #Neutrophils 3.7 10x3/uL (1.5-8.4); %Basophils 0.2 % (0.0-2.0); %Eosinophils 0.8 % (0.0-6.0); %Lymphocytes 31.5 % (18.0-47.0); %Monocytes 5.3 % (0.0-10.0); %Neutrophils 61.9 % (40.0-75.0); Hemoglobin 14.3 g/dL (12.0-15.5); Mean Corpuscular HGB CONC 33.3 g/dL (32.0-36.0); Mean Corpuscular Hemoglobin 30.2 pg (27.0-33.0); Mean Corpuscular Volume 90.9 fl (81.6-98.3); Mean Platelet Volume 8.9 fl (7.4-10.4); Platelet Count 307 10x3/uL (150-450); RBC Distribution Width 11.9 % (11.5-14.5); Red Blood Cell (RBC) Count 4.73 10x6/uL (3.90-5.03)
[2021-03-24 21:05] LABS: BHCG - Serum Negative (NEGATIVE); Pregs Control Background? CLEAR/WHITE (CLR/WHITE); Pregs Control Bar Appear? YES (CONTROL BAR)
[2021-03-25 11:17] LABS: SARS-CoV-2 PCR by NAA Not Detected (NotDetected)
== END 2021-03-24 14:25 | disposition home or self-care (01) ==
LOC: LABBT 14:24
PROVIDERS: ATTEND Orthopaedic Surgery Hand Surgery
DX: Z01.812 Encounter for preprocedural laboratory examination (principal); T84.84XA Pain due to internal orthopedic prosthetic devices, implants and grafts, initial encounter; M24.532 Contracture, left wrist; Z20.822 Contact with and (suspected) exposure to COVID-19
CPT/HCPCS: 84703; 85025; U0003; U0005

== ENCOUNTER 2021-03-27 07:21 | Day surgery (SDC) | payer BC ==
[2021-03-25 10:18] VITALS: BMI 25.5
[2021-03-27] MEDS ORDERED: Fentanyl 100 MCG/2 ML VIAL ONE ×2 (08:35→10:11)
[2021-03-27] MEDS ORDERED: Midazolam HCl 2 mg/2 ml Vial ONE ×2 (08:35→10:06)
[2021-03-27] MEDS ORDERED: Bacitracin Zinc Ointment 30 gm TUBE ONE (09:33)
[2021-03-27] MEDS ORDERED: Bupivacaine PF 0.5% 30 ML VIAL ONE (09:33)
[2021-03-27] MEDS ORDERED: Neomycin-Polymyxin 1 ML AMP ONE (09:33)
[2021-03-27] MEDS ORDERED: Bupivacaine HCl 0.5%/Epinephrine 1:200,000/PF 30 ml Vial ONE (10:33)
[2021-03-27] MEDS ORDERED: PROPOFOL 200 MG/20 ML VIAL ONE (10:33)
[2021-03-27] MEDS ORDERED: Dexamethasone 20 MG/5 ML VIAL ONE (10:33)
[2021-03-27] MEDS ORDERED: Lidocaine 1% PF 5 ML VIAL ONE (10:33)
[2021-03-27] MEDS ORDERED: Ketorolac Tromethamine 30 MG/ML VIAL ONE ×2 (10:33→13:36)
[2021-03-27] MEDS ORDERED: ePHEDrine 50 MG/ML VIAL ONE (10:33)
[2021-03-27] MEDS ORDERED: Ondansetron PF 4 MG/2 ML Vial ONE (10:33)
[2021-03-27] MEDS ORDERED: Thrombin 5000 UNITS/5 ML VIAL ONE (11:22)
== END 2021-03-27 14:40 | disposition home or self-care (01) ==
LOC: SDC 07:21
PROVIDERS: ATTEND Orthopaedic Surgery Hand Surgery
PROC: 0RNP0ZZ Release Left Wrist Joint, Open Approach (ICD-10-PCS; principal; 2021-03-27)
PROC: 0RPX0JZ Removal of Synthetic Substitute from Left Finger Phalangeal Joint, Open Approach (ICD-10-PCS; principal; 2021-03-27)
PROC: 0LB60ZZ Excision of Left Lower Arm and Wrist Tendon, Open Approach (ICD-10-PCS; principal; 2021-03-27)
DX: S61.502A Unspecified open wound of left wrist, initial encounter (principal); M24.532 Contracture, left wrist; T84.84XA Pain due to internal orthopedic prosthetic devices, implants and grafts, initial encounter; S63.092A Other subluxation of left wrist and hand, initial encounter; E03.9 Hypothyroidism, unspecified; Z79.890 Hormone replacement therapy; Z79.899 Other long term (current) drug therapy
CPT/HCPCS: 76000; J0690; J1100; J1885; J2250; J2405; J2704; J3010; J3490; S0020